=== PATIENT | male | born 1985 | race Caucasian/White ===

== ENCOUNTER 2018-06-28 08:46 | Day surgery (SDC) | payer OTHER ==
[~2018-06-28] VITALS: Ht 180.3 cm; Wt 148.9 kg
[~2018-06-28 08:46] MED LIST: CEPH500 PO; HYDACE5 PO; NAPR500 PO; POLTRIOPSO OS; PROACE50 PO; RXCEPH500 PO; RXTRAM50 PO; TRAM50 PO
[2018-06-28] MEDS ORDERED: METO100ER (09:14)
== END 2018-06-28 12:15 | disposition home or self-care (01) ==
LOC: ORSCSDS 08:46
PROVIDERS: Surgery
PROC: 0WUF0JZ Supplement Abdominal Wall with Synthetic Substitute, Open Approach (ICD-10-PCS; principal; 2018-06-28 10:00)
DX: K42.9 Umbilical hernia without obstruction or gangrene (principal); I10 Essential (primary) hypertension; E66.01 Morbid (severe) obesity due to excess calories; Z68.42 Body mass index [BMI] 45.0-49.9, adult; Z79.899 Other long term (current) drug therapy
CPT/HCPCS: C1781; J0690; J1100; J1885; J2250; J2405; J2710; J3010; J7120

== ENCOUNTER → 2021-08-12 | Outpatient (CLI) | payer OTHER ==
[~2021-08-12] MED LIST changes: +METO100ER
[2021-08-12 09:17] LABS: BASOPHILS ABSOLUTE AUTO 0.03 K/mm3 (0.00-0.23); BASOPHILS PERCENT AUTO 0 % (0-2); EOSINOPHILS ABSOLUTE AUTO 0.14 K/mm3 (0.00-0.68); EOSINOPHILS PERCENT AUTO 2 % (0-6); Hematocrit 41.6 % (37.0-53.0); Hemoglobin 14.1 g/dL (13.5-17.5); IMMATURE GRAN ABSOLUTE AUTO 0.04 K/mm3 (0.00-0.10); IMMATURE GRAN PERCENT AUTO 0 % (0-1); LYMPHOCYTES ABSOLUTE AUTO 0.77 K/mm3 (0.84-5.20); LYMPHOCYTES PERCENT AUTO 8 % (21-46); MONOCYTES ABSOLUTE AUTO 0.81 K/mm3 (0.16-1.47); MONOCYTES PERCENT AUTO 8 % (4-13); Mean Corpuscular HGB 32.3 pg (26.0-34.0); Mean Corpuscular HGB Conc 33.9 g/dL (31.5-36.5); Mean Corpuscular Volume 95 fL (80-100); Mean Platelet Volume 9.1 fL (9.1-12.4); NEUTROPHILS ABSOLUTE AUTO 7.83 K/mm3 (1.96-9.15); NEUTROPHILS PERCENT AUTO 81 % (41-73); Platelet Count 196 K/mm3 (150-400); RDW Coefficient Variation 12.8 % (11.7-14.2); RDW Standard Deviation 44.4 fL (35.1-46.3); Red Blood Cell Count 4.36 M/mm3 (4.30-5.90); White Blood Cell Count 9.62 K/mm3 (4.00-11.30)
[2021-08-12 09:30] LABS: Alanine Aminotransfer (ALT/SGP 41 U/L (12-78); Albumin, Blood 3.6 g/dL (3.4-5.0); Albumin/Globulin Ratio 0.8 (0.8-1.8); Alk Phos 126 U/L (40-126); Anion Gap 8 mmol/L (6-16); Aspartate Aminotrans (AST/SGOT 34 U/L (12-37); Bilirubin, Total 1.5 mg/dL (0.1-1.0); Blood Urea Nitrogen 10 mg/dL (8-24); Bun/Creatinine Ratio 11.5 (12.0-20.0); CO2, Blood 30 mmol/L (21-32); Calcium, Blood 9.2 mg/dL (8.5-10.1); Chloride, Blood 99 mmol/L (98-108); Creatinine, Blood 0.87 mg/dL (0.60-1.20); Globulin, Blood 4.3 g/dL (2.2-4.0); Glomerular Filtration Rate >60 (60-); Glucose, Blood 110 mg/dL (70-99); Potassium, Blood 3.8 mmol/L (3.5-5.5); Sodium, Blood 137 mmol/L (136-145); Total Protein, Blood 7.9 g/dL (6.4-8.2)
[2021-08-12 09:42] LABS: Troponin I <0.017 ng/mL (0.000-0.040)
== END ==
LOC: LAB 09:07 → LAB SHORT 09:07
PROVIDERS: Physician Assistant
DX: R07.9 Chest pain, unspecified (principal); R06.00 Dyspnea, unspecified
CPT/HCPCS: 80053; 83880; 84484; 85025; 85379

== ENCOUNTER 2023-07-15 08:14 | Emergency (ER) | payer OTHER ==
[~2023-07-15] VITALS: Ht 180.3 cm; Wt 138.3 kg
[2023-07-15 08:42] VITALS: BP 131/78
== END 2023-07-15 11:00 | disposition home or self-care (01) ==
LOC: ER 08:14
DX: M25.461 Effusion, right knee (principal)
CPT/HCPCS: 96372; 99283-25; A9270; J1885

== ENCOUNTER 2024-02-10 07:30 | Emergency (ER) | payer OTHER ==
[~2024-02-10] VITALS: Ht 180.3 cm; Wt 116.0 kg
[2024-02-10] MEDS ORDERED: ALLO100 PO (07:44)
[2024-02-10] MEDS ORDERED: COLCHICINE0.6 MG PO (07:44)
[2024-02-10] MEDS ORDERED: LISI20 PO (07:45)
[2024-02-10] MEDS ORDERED: HYDCHL25 PO (07:45)
[2024-02-10] MEDS ORDERED: SULF500A PO (07:45)
[2024-02-10 09:12] VITALS: BP 111/74
== END 2024-02-10 09:11 | disposition home or self-care (01) ==
LOC: ER 07:30
DX: R07.89 Other chest pain (principal); I10 Essential (primary) hypertension; Z79.899 Other long term (current) drug therapy
CPT/HCPCS: 71046; 93005; 93010; 99285-25

== ENCOUNTER 2024-07-05 17:01 | Emergency (ER) | payer OTHER ==
[~2024-07-05] VITALS: Ht 180.3 cm; Wt 127.0 kg
[~2024-07-05 17:01] MED LIST changes: +ALLO100 PO; +COLCHICINE0.6 MG PO; +HYDCHL25 PO; +LISI20 PO; +SULF500A PO
[2024-07-05 17:33] VITALS: BP 175/105
[2024-07-05 18:15] LABS: BASOPHILS ABSOLUTE AUTO 0.04 K/mm3 (0.00-0.23); BASOPHILS PERCENT AUTO 1 % (0-2); EOSINOPHILS ABSOLUTE AUTO 0.11 K/mm3 (0.00-0.68); EOSINOPHILS PERCENT AUTO 2 % (0-6); Hematocrit 39.2 % (37.0-53.0); Hemoglobin 13.1 g/dL (13.5-17.5); IMMATURE GRAN ABSOLUTE AUTO 0.01 K/mm3 (0.00-0.10); IMMATURE GRAN PERCENT AUTO 0 % (0-1); LYMPHOCYTES ABSOLUTE AUTO 0.37 K/mm3 (0.84-5.20); LYMPHOCYTES PERCENT AUTO 7 % (21-46); MONOCYTES ABSOLUTE AUTO 0.41 K/mm3 (0.16-1.47); MONOCYTES PERCENT AUTO 8 % (4-13); Mean Corpuscular HGB 30.8 pg (26.0-34.0); Mean Corpuscular HGB Conc 33.4 g/dL (31.5-36.5); Mean Corpuscular Volume 92 fL (80-100); Mean Platelet Volume 8.8 fL (9.1-12.4); NEUTROPHILS ABSOLUTE AUTO 4.37 K/mm3 (1.96-9.15); NEUTROPHILS PERCENT AUTO 82 % (41-73); Platelet Count 127 K/mm3 (150-400); RDW Coefficient Variation 15.9 % (11.7-14.2); RDW Standard Deviation 53.1 fL (35.1-46.3); Red Blood Cell Count 4.26 M/mm3 (4.30-5.90); White Blood Cell Count 5.31 K/mm3 (4.00-11.30)
[2024-07-05 18:34] LABS: Albumin, Blood 3.8 g/dL (3.4-5.0); Bilirubin, Total 2.1 mg/dL (0.1-1.0); Bun/Creatinine Ratio 23.8 (12.0-20.0); Calcium, Blood 9.1 mg/dL (8.5-10.1); Creatinine, Blood 0.67 mg/dL (0.60-1.20); Globulin, Blood 3.7 g/dL (2.2-4.0); Potassium, Blood 3.6 mmol/L (3.5-5.5); Total Protein, Blood 7.5 g/dL (6.4-8.2)
[2024-07-05] MEDS ORDERED: LEFLUNOMIDE20 M2 PO (19:50)
== END 2024-07-05 19:48 | disposition home or self-care (01) ==
LOC: ER 17:01
PROVIDERS: Physician Assistant
DX: R07.89 Other chest pain (principal); Z79.899 Other long term (current) drug therapy; I10 Essential (primary) hypertension
CPT/HCPCS: 80053; 85025; 93005; 93010; 99285-25